=== PATIENT | female | born 1980 | race Hispanic/Latino ===

== ENCOUNTER 2016-07-10 13:07 | Emergency (ER) | payer OTHER ==
[~2016-07-10] VITALS: Ht 165.1 cm; Wt 53.5 kg
[~2016-07-10 13:07] MED LIST: CYCLOBENZAPRINE10 M1 PO; FLOMAX(MONOGRA0.4 MG PO; PERCOCET 325 MG1 TA2 PO; TRIAMCINOLONE A15 G2 TOP; ZOFRAN ODT4 MG SL
--- NOTE | 2016-07-10 13:46 | ED NECK/BACK PAIN COMPLAINT ---
History of Present Illness General Chief Complaint: Low Back Pain/Injury Stated Complaint: LOWER BACK PAIN Vital Signs & Intake/Output Vital Signs & Intake/Output Vital Signs Date Time Temp Pulse Resp B/P Pulse O2 O2 Flow FiO2 Ox Delivery Rate 07/10 1321 98.9 94 20 111/69 100 Room Air Allergies Coded Allergies: NO KNOWN ALLERGIES (NKA) (07/10/16) Reconcile Medications Cyclobenzaprine HCl 10 MG TABLET 1 TAB PO QPM MUSCLE RELAXOR Ondansetron (Zofran Odt) 4 MG TAB.RAPDIS 1 TAB SL Q8 NAUSEA OXYCODONE HCL/ACETAMINOPHEN (Percocet 5-325 MG Tablet) 325 MG/5 MG TAB 1-2 TAB PO Q4-6 PRN PRN PAIN Tamsulosin Hydrochloride (Flomax) 0.4 MG CAP 1 TAB PO DAILY KIDNEY STONE Triamcinolone Acetonide 15 GM CREAM..G. 1 ARMANDO TOP BID rash 0.1% apply to affected area(s) Triage Note: TRIAGE: PT TO ER WITH FATHER C/C LOW BACK PAIN X 3 DAYS, CONSTANT. NO INJURY. TRIED 800 MG MOTRIN WITH SOME RELIEF NOTED. 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
--- NOTE | 2016-07-10 14:12 | ED GI/GU/ABDOMINAL COMPLAINT ---
History of Present Illness General Chief Complaint: Low Back Pain/Injury Stated Complaint: LOWER BACK PAIN Source: patient Exam Limitations: no limitations Vital Signs & Intake/Output Vital Signs & Intake/Output Vital Signs Date Time Temp Pulse Resp B/P Pulse O2 O2 Flow FiO2 Ox Delivery Rate 07/10 1321 98.9 94 20 111/69 100 Room Air Allergies Coded Allergies: NO KNOWN ALLERGIES (NKA) (07/10/16) Reconcile Medications Cyclobenzaprine HCl 5 MG TABLET 1 TAB PO TIDPRN PRN SPASM Cyclobenzaprine HCl 5 MG TABLET 1 TAB PO TIDPRN PRN PAIN Cyclobenzaprine HCl 10 MG TABLET 1 TAB PO QPM MUSCLE RELAXOR Ibuprofen 800 MG TABLET 1 TAB PO TID PRN PAIN Ibuprofen 800 MG TABLET 1 TAB PO TID PRN PAIN Ondansetron (Zofran Odt) 4 MG TAB.RAPDIS 1 TAB SL Q8 NAUSEA OXYCODONE HCL/ACETAMINOPHEN (Percocet 5-325 MG Tablet) 325 MG/5 MG TAB 1-2 TAB PO Q4-6 PRN PRN PAIN Tamsulosin Hydrochloride (Flomax) 0.4 MG CAP 1 TAB PO DAILY KIDNEY STONE Triamcinolone Acetonide 15 GM CREAM..G. 1 ARMANDO TOP BID rash 0.1% apply to affected area(s) Triage Note: TRIAGE: PT TO ER WITH FATHER C/C LOW BACK PAIN X 3 DAYS, CONSTANT. NO INJURY. TRIED 800 MG MOTRIN WITH SOME RELIEF NOTED. Triage Nurses Notes Reviewed? yes ? n Is pt currently ? No Onset: Abrupt Duration: day(s): (3) Timing: multiple episodes today Quality/Severity: sharpness, severe Location: right flank Radiation: low back Activities at Onset: none No Modifying Factors: none Associated Symptoms: BACK PAIN HPI: 35 year old female presents with right flank and lower back pain for the past 3 days, similar to previous when she had a kidney stone. She took motrin 800 mg with minimal relief. No nausea or vomiting. Renal stones were complicated by renal stent and ESWL by Dr. Singh last year. Past History Travel History Traveled to [place] past 21 day No Medical History Any Pertinent Medical History? 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 No Review of Systems Review of Systems Constitutional: Denies: chills, fever. EENTM: Reports: no symptoms. Respiratory: Denies: cough, short of breath. Cardiovascular: Denies: chest pain. GI: Denies: abdominal pain. Genitourinary: Reports: no symptoms. Musculoskeletal: Reports: back pain. Skin: Reports: no symptoms. Neurological/Psychological: Reports: no symptoms. Hematologic/Endocrine: Denies: bruising, bleeding, polyuria, polydipsia. Immunologic/Allergic: Denies: splenectomy. All Other Systems: Reviewed and Negative Physical Exam Physical Exam General Appearance: well developed/nourished, alert, awake Head: atraumatic, normal appearance Eyes: Bilateral: normal appearance, PERRL, EOMI. Ears, Nose, Throat, Mouth: hearing grossly normal, moist mucous membrane Neck: normal inspection, supple, full range of motion Respiratory: normal breath sounds, chest non-tender, no respiratory distress Cardiovascular: regular rate/rhythm Peripheral Pulses: 2+ radial (R), 2+ radial (L) Gastrointestinal: normal bowel sounds, soft, non-tender Back: normal inspection, normal range of motion Extremities: normal range of motion Neurologic/Psych: no motor/sensory deficits, awake, alert, oriented x 3 Skin: intact, normal color, warm/dry Core Measures ACS in differential dx? No Severe Sepsis Present: No Septic Shock Present: No Progress Differential Diagnosis: kidney stone, UTI/pyelo, MUSCULOSKELETAL STRAIN Plan of Care: Orders Procedure Date/time Status COMPREHENSIVE METABOLIC PANEL 07/10 1413 Complete CBC WITHOUT DIFFERENTIAL 07/10 1413 Complete URINE 07/10 1315 Complete URINALYSIS 07/10 1315 Complete Laboratory Tests 07/10/16 1424: Urinalysis LIGHT H, Urine Color YEL, Urine Clarity HAZY H, Urine pH 7.0, Ur Specific [place] 1.010, Urine Protein NEG, Urine Ketones NEG, Urine Nitrite NEG, Urine Bilirubin NEG, Urine Urobilinogen 0.2, Ur Leukocyte Esterase NEG, Ur Microscopic SEDIMENT EXAMINED, Urine RBC RARE, Urine WBC RARE, Ur Epithelial Cells MOD H, Urine Bacteria FEW H, Urine Mucus RARE, Urine Hemoglobin NEG, Urine Glucose NEG, Urine Test NEGATIVE 07/10/16 1421: Anion Gap 10, Estimated GFR > 60, BUN/Creatinine Ratio 16.7, Glucose 83, Calcium 9.5, Total Bilirubin 0.8, AST 18, ALT 25, Alkaline Phosphatase 60, Total Protein 7.4, Albumin 4.5, Globulin 2.9, Albumin/Globulin Ratio 1.6, CBC w Diff NO MAN DIFF REQ, RBC 4.61, MCV 90.2, MCH 30.0, RDW 13.2, MPV 9.5, Gran % 70.4, Lymphocytes % 25.2, Monocytes % 3.4, Eosinophils % 0.3, Basophils % 0.7, Absolute Granulocytes 6.7 H, Absolute Lymphocytes 2.4, Absolute Monocytes 0.3, Absolute Eosinophils 0, Absolute Basophils 0.1, PUBS MCHC 33.3 Diagnostic Imaging: Viewed by Me: CT Scan. Discussed w/RAD: CT Scan. Initial ED EKG: none Comments: PATIENT: DANIELLA OSPINA PRESENT AGE: 35 PATIENT ACCOUNT NO: [id number] : 82 LOCATION: ER ORDERING PHYSICIAN: ANTHONY DAVEY MD SERVICE DATE: 07/10/16 EXAM TYPE: CAT - CT ABD & PELVIS W/O IV CONTRAS EXAMINATION: CT ABDOMEN AND PELVIS WITHOUT CONTRAST CLINICAL INFORMATION: Right flank pain. History of lithotripsy in October 2015. COMPARISON: Renal ultrasound 12/08/2015. CT abdomen and pelvis without contrast 05/21/2015. TECHNIQUE: Multidetector volumetric imaging was performed from the superior aspect of the liver through the pubic symphysis. Sagittal and coronal reformatted images were obtained on the technologist's workstation. DLP: 247 mGy-cm FINDINGS: LUNG BASES: The visualized lung bases are unremarkable. LIVER, GALLBLADDER, AND BILIARY TREE: The liver is normal in size, shape, and attenuation. No focal hepatic lesion or biliary ductal dilatation is present. The gallbladder is unremarkable with no evidence of radiopaque gallstones, gallbladder wall thickening, or obvious pericholecystic inflammatory changes. PANCREAS: Unremarkable. SPLEEN: Unremarkable. ADRENAL GLANDS: Unremarkable. KIDNEYS AND URETERS: Evaluation of the bilateral kidneys and renal collecting systems is notable for nephrolithiasis of the right kidney. There are 2 adjacent nonobstructing stones within the upper to midpole of the right kidney measuring 1 mm and 2 mm. There is no appreciable nephrolithiasis of the left kidney. No ureteral stones are identified and there is no hydroureteronephrosis of either kidney or renal collecting system. BLADDER: Unremarkable. GASTROINTESTINAL TRACT: Normal anatomic orientation of the stomach relative to the duodenum. Normal caliber of abdominal and pelvic bowel loops, without evidence of obstruction or ileus. No circumferential bowel wall thickening with surrounding inflammatory changes to suggest an underlying infectious or inflammatory enterocolitis. Nonvisualization of the appendix. No acute inflammatory changes within the right lower quadrant of the abdomen. No organizing intra-abdominal fluid collections or free intraperitoneal air. ABDOMINAL WALL: No significant hernia is appreciated. LYMPH NODES: No significant abdominal or pelvic adenopathy. VASCULAR: Normal course and caliber of the abdominal aorta and its branching vessels, without aneurysmal dilatation. Limited evaluation for vascular patency in the absence of intravenous contrast. PELVIC VISCERA: Incidental note is made of a 2.7 cm hypoattenuating structure within the left adnexa. OSSEOUS STRUCTURES: No acute osseous abnormality. Normal alignment of the imaged thoracolumbar spine. IMPRESSION: 1. No acute findings within the abdomen or pelvis to explain patient symptomatology. There are two subcentimeter nonobstructing stones within the upper to midpole of the right kidney, visualized measuring up to 2 mm. No ureteral stones are identified and there is no hydroureteronephrosis of either kidney or renal collecting system. 2. The appendix is not visualized. There are no acute inflammatory changes within the right lower quadrant of the abdomen. 3. A 2.7 cm hypoattenuating structure within the left adnexa is indeterminate but may reflect a cyst within the left ovary. If the patient is experiencing pelvic pain, consider correlation with pelvic ultrasound. DICTATED BY: AKHIL ARIZA MD DATE/TIME DICTATED:07/10/161508 SUPERINTENDENT SEED MILL:WILVER DATE/TIME TRANSCRIBED:07/10/161508 CONFIDENTIAL, DO NOT COPY WITHOUT APPROPRIATE AUTHORIZATION. <Electronically signed in Other Vendor System> SIGNED BY: AKHIL ARIZA MD 07/10/16 1540 Departure Departure Time of Disposition: 1600 Disposition: HOME OR SELF CARE Condition: Stable Clinical Impression Primary Impression: Flank pain Secondary Impressions: Ovarian cyst Referrals: PATIENT HAS NO PRIMARY CARE DR (PCP/Family) Additional Instructions: Take Advil as needed for pain and follow up with Dr. Singh in the office. Return to the ER for any worsening symptoms, fever, chills, nausea or vomiting. Departure Forms: Customer Survey General Discharge Information Prescriptions: Current Visit Scripts Ibuprofen 1 TAB PO TID PRN PAIN #20 TAB Cyclobenzaprine HCl 1 TAB PO TIDPRN PRN SPASM #10 TAB Ibuprofen 1 TAB PO TID PRN PAIN #20 TAB Cyclobenzaprine HCl 1 TAB PO TIDPRN PRN PAIN #10 TAB
[2016-07-10 14:35] LABS: ABSOLUTE BASOPHIL COUNT 0.1 /CUMM (0.0-0.2); ABSOLUTE EOSINOPHIL COUNT 0 /CUMM (0.0-0.7); ABSOLUTE GRANULOCYTE CT 6.7 /CUMM (1.4-6.5); ABSOLUTE LYMPH COUNT 2.4 /CUMM (1.2-3.4); ABSOLUTE MONOCYTE COUNT 0.3 /CUMM (0.10-0.60); BASOPHIL % 0.7 % (0.0-2.0); EOSINOPHIL % 0.3 % (0-5); GRANULOCYTE % 70.4 % (42.2-75.2); HEMATOCRIT 41.6 % (37-47); MEAN CORPUSCULAR HGB CONC 33.3 G/DL (33.0-37.0); MEAN CORPUSCULAR VOLUME 90.2 FL (81.0-99.0); MEAN PLATELET VOLUME 9.5 FL (7.4-10.4); PLATELET COUNT 231 /CUMM (130-400); RBC DISTRIBUTION WIDTH 13.2 % (11.5-14.5); RED BLOOD CELL CT 4.61 /CUMM (4.20-5.40); WHITE BLOOD CELL COUNT 9.6 /CUMM (4.8-10.8)
--- NOTE | 2016-07-10 15:40 | CT SCAN REPORT ---
EXAMINATION: CT ABDOMEN AND PELVIS WITHOUT CONTRAST CLINICAL INFORMATION: Right flank pain. History of lithotripsy in October 2015. COMPARISON: Renal ultrasound 12/08/2015. CT abdomen and pelvis without contrast 05/21/2015. TECHNIQUE: Multidetector volumetric imaging was performed from the superior aspect of the liver through the pubic symphysis. Sagittal and coronal reformatted images were obtained on the technologist's workstation. DLP: 247 mGy-cm FINDINGS: LUNG BASES: The visualized lung bases are unremarkable. LIVER, GALLBLADDER, AND BILIARY TREE: The liver is normal in size, shape, and attenuation. No focal hepatic lesion or biliary ductal dilatation is present. The gallbladder is unremarkable with no evidence of radiopaque gallstones, gallbladder wall thickening, or obvious pericholecystic inflammatory changes. PANCREAS: Unremarkable. SPLEEN: Unremarkable. ADRENAL GLANDS: Unremarkable. KIDNEYS AND URETERS: Evaluation of the bilateral kidneys and renal collecting systems is notable for nephrolithiasis of the right kidney. There are 2 adjacent nonobstructing stones within the upper to midpole of the right kidney measuring 1 mm and 2 mm. There is no appreciable nephrolithiasis of the left kidney. No ureteral stones are identified and there is no hydroureteronephrosis of either kidney or renal collecting system. BLADDER: Unremarkable. GASTROINTESTINAL TRACT: Normal anatomic orientation of the stomach relative to the duodenum. Normal caliber of abdominal and pelvic bowel loops, without evidence of obstruction or ileus. No circumferential bowel wall thickening with surrounding inflammatory changes to suggest an underlying infectious or inflammatory enterocolitis. Nonvisualization of the appendix. No acute inflammatory changes within the right lower quadrant of the abdomen. No organizing intra-abdominal fluid collections or free intraperitoneal air. ABDOMINAL WALL: No significant hernia is appreciated. LYMPH NODES: No significant abdominal or pelvic adenopathy. VASCULAR: Normal course and caliber of the abdominal aorta and its branching vessels, without aneurysmal dilatation. Limited evaluation for vascular patency in the absence of intravenous contrast. PELVIC VISCERA: Incidental note is made of a 2.7 cm hypoattenuating structure within the left adnexa. OSSEOUS STRUCTURES: No acute osseous abnormality. Normal alignment of the imaged thoracolumbar spine. IMPRESSION: 1. No acute findings within the abdomen or pelvis to explain patient symptomatology. There are two subcentimeter nonobstructing stones within the upper to midpole of the right kidney, visualized measuring up to 2 mm. No ureteral stones are identified and there is no hydroureteronephrosis of either kidney or renal collecting system. 2. The appendix is not visualized. There are no acute inflammatory changes within the right lower quadrant of the abdomen. 3. A 2.7 cm hypoattenuating structure within the left adnexa is indeterminate but may reflect a cyst within the left ovary. If the patient is experiencing pelvic pain, consider correlation with pelvic ultrasound.
[2016-07-10] MEDS ORDERED: IBUPROFEN800 M1 PO ×3 (16:01→16:05)
[2016-07-10] MEDS ORDERED: CYCLOBENZAPRINE5 M2 PO ×3 (16:01→16:05)
[2016-07-10 16:15] VITALS: BP 124/84
== END 2016-07-10 16:15 ==
LOC: ERH 13:07
PROVIDERS: Emergency Medicine
DX: N83.202 Unspecified ovarian cyst, left side (principal)
CPT/HCPCS: 74176; 81001; 81025

== ENCOUNTER → 2016-07-21 | Day surgery (SDC) | payer OTHER ==
[~2016-07-21] VITALS: Ht 165.1 cm; Wt 53.5 kg
[~2016-07-21] MED LIST changes: +CYCLOBENZAPRINE5 M2 PO; +IBUPROFEN800 M1 PO
--- NOTE | 2016-07-21 12:28 | Operative Report ---
Operative/Inv Procedure Report Surgery Date: 07/21/16 Name of Procedure: Diagnostic laparoscopy peritoneal washings Pre-Operative Diagnosis: Pelvic pain Post-Operative Diagnosis: Same vascular congestion fibroid evidence of bilateral tubal ligation Estimated Blood Loss: less than 50ml Surgeon/Material Handler 1St Shift: LINDA PAZ,DORY Muniz Anesthesia: general endotracheal tube, block Operative/Procedure Note Note: Cc general patient was taken the operating room placed prone position after adequate anesthesia patient placed in dorsolithotomy position the vagina from dorsal fashion bladder was catheterized examination under anesthesia performed CO2 tenaculum was on the anterior cervix Sotelo cannula usual state placed in usual fashion surgeon regowned and gloved at the level the umbilicus stab incision was made to allow for the entry of Veress needle the abdomen was insufflated approximately 2-1/2 L of CO2 to liver edge dullness at this point a Veress needle was removed a 10 mm trocar was then inserted atraumatically the umbilicus that sheath remained in place through that sheath a laparoscope was placed under direct visualization a 5 mm trocar was placed 2 fingerbreadths of symptoms pubis in the midline on through that a atraumatic port was placed and fluid was removed from the abdomen on at this point pictures were taken maximal CO2 was removed wants was removed under direct visualization the incision the umbilicus was oversewn using 0 Marcaine was injected underneath skin skin incisions were oversewn using 3-0 interrupted patient tolerated that well on dressings were applied the Howard was removed the Sotelo cannula was moved the counts correct all instruments removed from the vagina the patient was returned spine position she was extubated awakened from anesthesia and transferred recovery room awake alert counts correct
== END ==
LOC: STS 01:53
DX: R10.2 Pelvic and perineal pain (principal); D25.9 Leiomyoma of uterus, unspecified; Z98.51 Tubal ligation status; F17.200 Nicotine dependence, unspecified, uncomplicated
CPT/HCPCS: 81025; 88305; J0131; J0694; J1100; J2250; J2405